=== PATIENT | male | born 1950 | race African-American/Black ===

== ENCOUNTER 2017-09-09 11:30 | Emergency (ER) | payer MEDICARE, OTHER ==
[~2017-09-09] VITALS: Ht 182.9 cm; Wt 96.8 kg
[~2017-09-09 11:30] MED LIST: ASPIRIN 81M81 MG/TA2 PO; ASPIRIN E.C. 8181 MG PO; CODEINE PO; COLACE 100100 MG/CAP PO; D-31000 IU PO; DESYREL 100MG100 MG PO; DICLOFENAC SOD75 MG PO; GABAPENTIN300 MG PO; HCTZ 25MG TAB25 MG PO; HCTZ 25MG25 MG PO; LEVITRA20 MG PO; LISINOPRIL40 MG PO; MULTI-DAY PLUS1 TA1 PO; MULTIPLE VITAMI1 CAP PO; NATURE'S BLEND400 IU PO; NEURONTIN300 MG/CAP PO; NORCO 325 MG-51 TAB PO; PAROXETINE40 MG PO; PAXIL40 MG PO; PRINIVIL20 MG PO; PROAIR HFA0.09 MG/AC IH; PROCARDIA XL 6060 MG PO; ROBAXIN 50500 MG/TAB PO; ROXICODONE 55 MG/TAB PO; RT ADVAIR 128 DISKUS IH; SIMVASTATIN20 MG PO; TRAZADONE HYDR100 MG PO; TYLENOL W/COD1 UDTAB PO; VENTOLIN0.09 MG IH; VIAGRA100 MG PO; VITAMIN D 400400 IU PO; VITAMIN D1000 IU PO; ZESTRIL 20MG TA20 MG PO; ZOCOR 20MG20 MG PO
[2017-09-09 11:35] VITALS: TEMP 98.7
[2017-09-09] MEDS ORDERED: LOTREL 10 MG-201 CAP PO (12:01)
[2017-09-09] MEDS ORDERED: HCTZ12.5TAB PO (12:02)
[2017-09-09] MEDS ORDERED: PRINIVIL20 MG PO (12:02)
[2017-09-09] MEDS ORDERED: ONCOVITE1 TAB PO (12:04)
[2017-09-09] MEDS ORDERED: DESYREL 100MG100 MG PO (12:05)
[2017-09-09] MEDS ORDERED: IBU800 M1 PO (12:07)
[2017-09-09] MEDS ORDERED: VIAGRA100 M1 PO (12:07)
[2017-09-09 12:23] LABS: COLLECTION METHOD CLEAN CATCH
[2017-09-09 12:33] LABS: BASO # 0.1 (0.0-0.2); BASO % 0.9 % (0.0-2.0); EOS % 0.6 % (0-4.0); GRAN # 3.5 (1.4-6.5); GRAN % 52.3 % (42.2-75.2); HEMATOCRIT 48.8 % (42.0-52.0); HEMOGLOBIN 16.4 g/dl (13.5-18.0); LYMPH # 2.6 (1.2-3.4); LYMPH % 39.5 % (20.0-51.0); MEAN CELL VOLUME 82 fl (80.0-100.0); MEAN CORPUSCULAR HEMOGLOBIN 28 pg (27.0-31.0); MEAN CORPUSCULAR HGB CONC 34 g/dl (33.0-37.0); MEAN PLATELET VOLUME 10.6 fl (7.4-10.4); MONO # 0.4 (0.1-0.6); MONO % 6.6 % (1.7-9.3); PLATELET COUNT 230 K/mm3 (130-400); RED BLOOD COUNT 5.95 M/mm3 (4.20-5.60); REDCELL DISTRIBUTION WIDTH-CV 13.9 % (11.5-14.5)
[2017-09-09 12:38] LABS: MUCOUS Present /lpf; PH 5 (5-8); SQUAMOUS EPITHELIAL 0-2 /hpf; URINE APPEARANCE Clear; URINE BACTERIA None Seen /hpf; URINE BILIRUBIN Negative (NEGATIVE); URINE BLOOD Negative (NEGATIVE); URINE COLOR Yellow; URINE GLUCOSE Negative (NEGATIVE); URINE KETONE Negative (NEGATIVE); URINE LEUKOCYTE ESTERASE Negative (NEGATIVE); URINE NITRATE Negative (NEGATIVE); URINE PROTEIN(semi-quant) Negative (NEGATIVE); URINE RBC 0-2 /hpf; URINE UROBILINOGEN Negative (NEGATIVE)
[2017-09-09 12:41] LABS: ALBUMIN 4.1 gm/dL (3.5-5.0); BILIRUBIN,TOTAL 0.5 mg/dL (0.0-1.0); C-REACTIVE PROTEIN 1.2 mg/dL (0.0-0.9); CALCIUM 9.9 mg/dL (8.4-10.2); CREATININE, serum 1.58 mg/dL (0.66-1.25); POTASSIUM 3.7 mmol/L (3.4-5.0); TOTAL PROTEIN 7.7 gm/dL (6.4-8.2)
[2017-09-09] MEDS ORDERED: DOXYCYCLINE 10100 MG PO (14:25)
[2017-09-09 14:43] VITALS: BP 119/94; PULSE 56
== END 2017-09-09 14:50 | disposition home or self-care (01) ==
LOC: COL.ER 11:30
PROVIDERS: Emergency Medicine
DX: R51 Headache (principal); I10 Essential (primary) hypertension
CPT/HCPCS: J1885

== ENCOUNTER → 2019-01-25 | Outpatient (CLI) | payer MEDICARE, OTHER ==
[~2019-01-25] MED LIST changes: +DOXYCYCLINE 10100 MG PO; +HCTZ12.5TAB PO; +IBU800 M1 PO; +LOTREL 10 MG-201 CAP PO; +ONCOVITE1 TAB PO; +VIAGRA100 M1 PO
== END ==
LOC: COL.RAD 07:35
DX: Z01.812 Encounter for preprocedural laboratory examination (principal); D49.0 Neoplasm of unspecified behavior of digestive system; K86.2 Cyst of pancreas; N28.1 Cyst of kidney, acquired; R93.5 Abnormal findings on diagnostic imaging of other abdominal regions, including retroperitoneum; Z96.9 Presence of functional implant, unspecified; Z90.5 Acquired absence of kidney
CPT/HCPCS: Q9967

== ENCOUNTER → 2021-01-26 | Outpatient (CLI) | payer MEDICARE, OTHER | LOC: COL.RAD 07:39 | DX: K57.30 Diverticulosis of large intestine without perforation or abscess without bleeding (principal); D49.0 Neoplasm of unspecified behavior of digestive system; K86.2 Cyst of pancreas; Z90.5 Acquired absence of kidney | CPT/HCPCS: Q9967 ==